=== PATIENT | male | born 1960 | race Hispanic/Latino ===

== ENCOUNTER 2017-12-19 15:15 | Emergency (ER) | payer OTHER, SELFPAY ==
[~2017-12-19 15:15] MED LIST: ISOVUE-370 76%-LOCM 1 ML ONE
[2017-12-19 15:38] LABS: Bilirubin Moderate (Negative); Leukocyte Negative (Negative); Protein, Urine (Dipstick) Trace mg/dL (Neg-Trace); Specific Gravity, Urine 1.025 (1.005-1.030); Urobilinogen > or = 8.0 mg/dL (0.2-1.0)
[2017-12-19 15:46] LABS: Bacteria/HPF None Seen HPF (None Seen); Clarity Clear (Clear); Hyaline Casts/LPF 4-6 HYALINE CAST LPF (0-3 Hyaline); Nitrite Negative (Negative); Pathc Cast-AUWi Flag 0.87 (0-2.49); RBC/HPF 0-3 HPF (0-3); Squamous Epithelial 0-3 HPF (0-3); WBC/HPF None Seen HPF (0-3)
[2017-12-19 15:47] LABS: Blood, Urine Small (Negative); Glucose, Urine (Dipstick) Negative (Negative)
[2017-12-19 16:06] LABS: #Eosinphils 0.1 thou/uL (0.0-0.7); #Lymphocytes 0.9 thou/uL (1.20-3.40); #Monocytes 0.6 thou/uL (0.11-0.59); #Neutrophils 2.9 thou/uL (1.40-6.50); %Basophils 0.5 % (0.0-1.0); %Eosinophils 1.3 % (0.0-10.0); %Monocytes 14.3 % (0.0-10.0); %Neutrophils 63.8 % (42.0-75.0); Hemoglobin 13.2 g/dL (14.0-18.0); Mean Corpuscular HGB CONC 34.8 g/dL (32.0-36.0); Mean Corpuscular Hemoglobin 36.6 pg (27.0-31.0); Mean Platelet Volume 9.7 fL (7.4-10.4); Platelet Count 27 thou/uL (130-400); RBC Distribution Width 13.9 % (11.5-14.5); Red Blood Cell (RBC) Count 3.61 mill/uL (4.70-6.10); White Blood Cell (WBC) Count 4.5 thou/uL (4.8-10.8)
[2017-12-19 16:09] LABS: INR-International Normal Ratio 1.9; PTT 41.5 SEC (22.9-36.1); Prothrombin Time 22.5 SEC (12.0-14.7)
[2017-12-19 16:21] LABS: MDiff Complete? YES; Macrocytosis SLIGHT = 6-15 cells (100X) (0-5/hpf); PLT Morphology Comment Appears Decreased; Polychromasia SLIGHT = 2-3 cells (100X) (0-2/hpf); Reflex for Review?? YES
[2017-12-19 16:22] LABS: ALT (SGPT) 60 U/L (8-55); AST (SGOT) 125 U/L (5-34); Albumin 2.9 g/dL (3.5-5.0); Alkaline Phosphatase 173 U/L (40-150); Anion Gap 10 mmol/L (10-20); BUN (Urea Nitrogen) 6 mg/dL (8.4-25.7); Bilirubin, Total 4.7 mg/dL (0.2-1.2); CK (CPK) 159 U/L (30-200); Calc. Creatinine Clearance 0 mL/min (70-130); Calcium 7.9 mg/dL (7.8-10.44); Carbon Dioxide 22 mmol/L (22-29); Chloride 105 mmol/L (98-107); Estimated GFR-MDRD Greater than 90; Globulin 3.8 g/dL (2.4-3.5); Glucose 113 mg/dL (70-105); Lipase 51 U/L (8-78); Magnesium 1.4 mg/dL (1.6-2.6); Potassium 3.4 mmol/L (3.5-5.1); Protein, Total 6.7 g/dL (6.0-8.3); Sodium 134 mmol/L (136-145)
--- NOTE | 2017-12-19 17:14 | CT ---
HISTORY: 57-year-old with history of abdominal pain radiating to back and groin since yesterday. The patient has a known history of cirrhosis. Comparison made to previous abdominal MRI from 05/04/15. CT images demonstrate some atrophy of the liver. The lung bases are unremarkable. No evidence of free intraperitoneal air seen. The gallbladder has been surgically removed. There is a hypodense area in the medial aspect of the left hepatic lobe compatible with hepatic cysts . Some splenomegaly seen. There is some fat stranding surrounding the pancreas compatible with pancreatitis. Some of the fat st randing extends into the pericolic gutters and the retroperitoneum. The adrenal glands are unremarkable. The kidneys are within normal limits. No dilated loops of small bowel or colon is seen. Extensive descending and sigmoid colonic diverticulosis is seen. Disc desiccation and degeneration is seen at the L5-S1 intervertebral disc space. A normal appendix is seen. IMPRESSION: 1. Fat stranding and inflammatory change surrounding the pancreas compatible with pancreatitis. 2. Nodularity and some atrophy of the liver compatible with cirrhotic changes. 3. No evidence of ascites seen. 4. No definite evidence of varicosities. POS: [facility]
== END 2017-12-19 19:55 | disposition home or self-care (01) ==
LOC: ERS 15:15
DX: K70.30 Alcoholic cirrhosis of liver without ascites (principal); K70.10 Alcoholic hepatitis without ascites; K85.90 Acute pancreatitis without necrosis or infection, unspecified; K21.9 Gastro-esophageal reflux disease without esophagitis; Z87.891 Personal history of nicotine dependence
CPT/HCPCS: 36415; 74177; 80053; 81003; 81015; 82150; 82248; 82550; 83605; 83690; 83735; 85025; 85060; 85610; 85730; 87040; 87086